=== PATIENT | male | born 2005 | race African-American/Black ===

== ENCOUNTER 2024-07-21 15:22 | Outpatient (CLI) | payer OTHER, SELFPAY ==
--- OUTSIDE RECORDS SUMMARY | 2024-07-21 17:52 | XMS_ITS | Encounter Summary ---
Author Organization [facility] Address [address] [place] [address] Care Team Providers Care Vp Strategic Partnerships Name Role Phone A, Unknown Practice Primary Care Provider [phone] Reason for Referral * Consultation (Routine) - Open Specialty Diagnoses / Procedures Referred By Pam cooley Referred To Contact Endocrinology Diagnoses Diabetes mellitus type 1, uncomplicated (HCC) Aleksandar Armando MD [address] [place] [id number] Referral ID Status Reason Start Date Expiration Date V isits Requested Visits Authorized [id number] Open Specialty Services Required 07/21/2024 07/21/2025 1 1 Reason for Visit * Reason Comments Diabetes Encounter Details Date Type Department Care Team (Latest Contact Info) Description 07/21/2024 2:45 PM CDT - 07/21/2024 3:47 PM CDT Hospital Encounter [facility] Pediatrics - Endocrinology [address] [place] [address] [place] [address] Aleksandar Armando MD [address] [place] [id number] Discharge Disposition: Home or Self Care Social History Tobacco Use Types Packs/Day Years Used Date Smoking Tobacco: Never Passive Smoke Exposure: Past Smokeless Tobacco: Never Alcohol Use Standard Drinks/Week Comments Never 0 (1 standard drink = 0.6 oz pur e alcohol) AUDIT-C Answer Date Recorded Q1: How often do you have a drink containing alc ohol? Never 12/03/2019 Average Number of Drinks Not on file 020 Frequency of Binge Drinking Not on file 08/2019 Sex and Gender Information Value Date Recorded Sex Assigned at Not on file Gender Identity Not on file Sexual Orientation Not on file documented as of this encounter Last Filed Vital Signs Vital Sign Reading Time Taken Comments Blood Pressure - - Pulse - - Temperature - - Respiratory Rate - - Oxygen Saturation - - Inhaled Oxygen Concentration - - Weight 90.5 kg (199 lb 8.3 oz) 07/21/2024 2:50 P M CDT Height 179.4 cm (5' 10.63 ) 07/21/2024 2:50 PM C DT Body Mass Index 28.12 07/21/2024 2:50 PM CDT documented in this encounter Functional Status Functional Status Response Date of Assess ment Is person deaf or have aleena us hearing difficulty? No 09/16/2020 Is person blind or have seri ous difficulty seeing? No 09/16/2020 Does person have serious dif ficulty walking/climbing stairs? No 09/16/2020 Does person have difficulty dressing/bathing? Yes-Pt states he gets fatigues 09/16/2020 Does person have difficulty doing errands alone? No 09/16/2020 Cognitive Status Response Date of Assessm ent Does person have difficulty concentrating/remembering/making decisions? No 09/16/2020 documented as of this encounter Medications at Time of Discharge Medication Sig Dispensed Refills Start Date End Date acetaminophen (TYLENOL) 500 MG tablet Take 2 tablets by mouth every 6 hours as needed Maximum allowable Acetaminophen amount = 4 Grams (4000 mg) / 24 hours. 01/07/2020 acetone,urine, (Ketostix) stripIndications:Diabe re mellitus type 1, uncomplicated (HCC) Use as needed (use when blood sugar is greater than 250 or when ill. ) 100 strip 11 07/21/2024 aspirin effervescent (Yancy [place]) 325 MG efferv tablet Take 1 (one) tablet by mouth every 4 hours as needed for Pain or Fever blood glucose (OneTouch Verio) test stripIndications:Diabe re mellitus type 1, uncomplicated (HCC) Use to test blood sugar 1-4 times daily 100 strip 11 07/21/2024 Blood Glucose Monitoring Suppl (ONETOUCH VERIO REFLECT) w/Device KIT Use 1 Each as directed 1 kit 1 09/17/2020 Continuous Glucose Sensor (Dexcom G7 Sensor) MISCIndications:Diabet es mellitus type 1, uncomplicated (HCC) Use 1 Each every 10 days 3 Each 3 07/21/2024 WD-Ppokwdubnf-Yotfplus ophen (NYQUIL COLD & FLU PO) docusate sodium (Colace) 100 MG capsule Take 1 (one) capsule by mouth 2 times daily 60 capsule 4 02/24/2022 Glucagon (Baqsimi Two Pack) 3 MG/DOSE POWDIndications:Diabet es mellitus type 1, uncomplicated (HCC) [place] 3 mg into the nose as needed (for emergency use) 1 Each 5 07/21/2024 Glucagon, rDNA, (GLUCAGON EMERGENCY) 1 MG KIT Administer 1 mg into muscle for severe low blood glucose level 2 kit 09/16/2020 ibuprofen (MOTRIN) 800 MG tablet Take 1 tablet by mouth every 8 hours as needed 01/07/2020 insulin glargine (Lantus SoloStar) penIndications:Diabete s mellitus type 1, uncomplicated (HCC) Inject 2 (two) Units subcutaneously at bedtime 15 mL 07/21/2024 insulin lispro (HumaLOG;ADMelog) 100 UNIT/ML penIndications:Diabete s mellitus type 1, uncomplicated (HCC) Inject subcutaneously with meals, snacks, and for hyperglycemia corrections as directed by provider. Max daily dose 50 units 15 mL 07/21/2024 Insulin Pen Needle (TRUEplus Pen [place]) 32G X 4 MM MISCIndications:Diabet es mellitus, new onset (HCC) Use 1 Each as directed To administer insulin 4-6 times daily 200 Each 11/27/2023 Lancets (ONETOUCH DELICA PLUS 33G EXTRA FINE LANCET) Use to test blood sugar 5 to 9 times daily 200 Each 09/17/2020 sennosides (Ex-Lax) 15 MG tablet Take 1 (one) tablet by mouth once daily 30 tablet 3 02/24/2022 documented as of this encounter Progress Notes * Aleksandar Armando MD - 07/21/2024 3:44 PM CDT Images from the original note were not included. Division of Pediatric Endocrinology [address] [place] [address] Dept Name: Rob Ellis Date: 07/21/2024 : 2005 Age: [age] year old Pediatric Endocrinology Clinic Visit Subjective / Objective Diabetes Interval History: Doing well; no diabetes related problems. BG remain mostly w/in target range. Hypoglycemia perhaps 2-4 times weekly. Skateboarding for physial activity. No ketonuria Diabetes Therapies: Long Acting Insulin: Insulin Type Units Time Injection method Comments Lantus 22 9:00 PM Other Insulin Types: Insulin type Injection method Injection given by Meals/Snacks Injection sites Glucose tgt range Comments Humalog Humalog Kwikpen 1 u per 12 g carb Units/Gram Carbs: Insulin type Units/meal or snack Gram carbs/meal or snack Comments 0-5 u meals; 0-2 u snacks (0.31 u/kg/day) Mealtime Correction & Dose Range: Insulin type Correction units mg/dL Over mg/dL Max units Doserange/meal or snack Comments 1 50 250 6 Other Medications Other Medications: Miralax Blood Glucose Monitoring Glucose Monitoring Frequency: 1 x day Glucose Target Range: 70-150 Review of Blood Glucose Past 14 Days: see below Sensor Information: Type Placement Change (days) Downloaded Review of sensor shows Comments Dexcom arm 10 wearing on right arm Hypoglycemia Episodes per Week: 2-4 Nocturnal Episodes per Month: 0-1 Recognizes Hypglycemia: when blood sugar is <80 mg/dL Symptoms: shaking, other, sweating, hunger Treatment for Episodes: juice Glucagon: has glucagon Urine Ketone Management Urine Ketone Monitoring: yes Checks When: glucose >250 Meal Plan Type of Meal Plan: carb-counting meal plan Interviewed by Flight Engineer Manager Today: Neg Last Seen by Flight Engineer Manager: Mar 14, 2022 History of Present Illness Rob Ellis is a 18 year old male that was seen today at the [facility] Pediatrics - Endocrinology clinic for a Follow Up Visit. He was accompanied today by his grandparent(s). Since his last visit he has done fairly well. Diabetes Pertinent negatives include no chest pain, no abdominal pain and no headaches. Review of Systems Constitutional: (+) weight gain and 4 lb weight gain in nine months (-) fever and (-) weight loss Eyes: (-) eye discharge ENT: (-) hearing loss and (-) sore throat Cardiovascular: (-) chest pain Respiratory: (-) cough Gastrointestinal: (-) abdominal pain Genitourinary: (-) abdominal / pelvic pain Musculoskeletal: (-) muscle weakness Integumentary / Skin: (-) rash Neurological: (-) headache Psychiatric / Behavioral: (-) depression Endocrine: (+) polydipsia Physical Exam Vitals: 07/21/24 1450 Weight: 90.5 kg (199 lb 8.3 oz) Height: 1.794 m (5' 10.63 ) Body mass index is 28.12 kg/m??. Body surface area is 2.12 meters squared. Temp: Height: 179.4 cm (5' 10.63 ) 64 %ile (Z= 0.37) based on [facility] (Boys, 2-20 Years) [id number] databased on Stature recorded on 07/21/2024. Weight: 90.5 kg (199 lb 8.3 oz) 92 %ile (Z= 1.42) based on [facility] (Boys, 2-20 Years) [id number] data using data from 07/21/2024. Constitutional: Not distressed Head: Normocephalic Ears: Normal Eyes: Conjunctivae normal Throat: Oropharynx clear and dentition normal Mouth: moist mucous membranes and normal tongue Neck: Normal range of motion No thyromegaly Cardiovascular: Regular rate and rhythm and normal rate No murmur Pulmonary: Breath sounds normal Abdominal: No abdominal tenderness, no abdominal tenderness, nondistended and no guarding Bowel sounds: normal Musculoskeletal: Moving all extremities equally Skin: Warm No rash History Past Medical History: Diagnosis Date Diabetes type 1, controlled S/P PICC central line placement 12/09/2019 right basilic S/P PICC central line placement 01/02/2020 no difficulties Past Surgical History: Procedure Laterality Date APPENDECTOMY, LAPAROSCOPIC N/A 12/04/2019 N/A; LAPAROSCOPIC APPENDECTOMY Family History Problem Relation Name Age of Onset Other Mother had two colonoscopies, possible IBD Diabetes - Type 2 Other Social History Tobacco Use Smoking status: Never Passive exposure: Past Smokeless tobacco: Never Vaping Use Vaping status: Never Used Substance Use Topics Alcohol use: Never Drug use: Never Social History Social History Narrative Parents are not together. Rob Ellis resides with his mother, and sister, age 13 yr, who are healthy. He is enrolled in the 12th grade (Nov, 2021) and plans to attend [employer] to study computer science. He works at [employer] ~ 25 hours weekly (Feb, 2022). Maternal grandmother and hersiblings have type 2 diabetes mellitus. Rob Cooley III is enrolled at [facility] ([place], [place]) History Delivery Method: Vaginal, Spontaneous Gestation Age: 40 wks Hospital Name: [facility] Location: [place], [place] Allergies Soy allergy, Iodine, and Shellfish allergy Immunizations There is no immunization history on file for this patient. Up to date Labs Recent Labs Component Name 07/21/24 1418 10/11/23 1505 04/03/23 1030 HGBA1C 6.4* 6.1* 6.5* Recent Labs Component Name 04/03/23 1117 09/15/20 2202 TSH 0.617 1.874 Recent Labs Component Name 04/03/23 1117 12/11/19 0540 12/10/19 0343 CHOL 178 - - TRIG 51 52 75 HDL 78 - - LDLCALC 90 - - Hospital Encounter on 07/21/24 HEMOGLOBIN A1C - POCT INTERFACED Result Value Ref Range Hemoglobin A1C POCT 6.4 (H) <5.7 % Estimated Average Glucose 137 mg/dL Medications Prior to Visit Current Medications acetaminophen (TYLENOL) 500 MG tablet Take 2 tablets by mouth every 6 hours as needed Maximum allowable Acetaminophen amount = 4 Grams (4000 mg) / 24 hours. acetone,urine, (Ketostix) strip Use as needed (use when blood sugar is greater than 250 or when ill. ) aspirin effervescent (Yancy [place]) 325 MG efferv tablet Take 1 (one) tablet by mouth every 4 hoursas needed for Pain or Fever blood glucose (OneTouch Verio) test strip Use to test blood sugar 1-4 times daily Blood Glucose Monitoring Suppl (ONETOUCH VERIO REFLECT) w/Device KIT Use 1 Each as directed Continuous Glucose Sensor (Dexcom G7 Sensor) [facility] Use 1 Each every 10 days HE-Nrofwywkwz-Cmyccfsvqzfuy (NYQUIL COLD & FLU PO) docusate sodium (Colace) 100 MG capsule Take 1 (one) capsule by mouth 2 times daily Glucagon (Baqsimi Two Pack) 3 MG/DOSE POWD [place] 3 mg into the nose as needed (for emergency use) Glucagon, rDNA, (GLUCAGON EMERGENCY) 1 MG KIT Administer 1 mg into muscle for severe low blood glucose level ibuprofen (MOTRIN) 800 MG tablet Take 1 tablet by mouth every 8 hours as needed insulin glargine (Lantus SoloStar) pen Inject 2 (two) Units subcutaneously at bedtime insulin lispro (HumaLOG;ADMelog) 100 UNIT/ML pen Inject subcutaneously with meals, snacks, and for hyperglycemia corrections as directed by provider. Max daily dose 50 units Insulin Pen Needle (TRUEplus Pen [place]) 32G X 4 MM MISC Use 1 Each as directed To administer insulin 4-6 times daily Lancets (ONETOUCH DELICA PLUS 33G EXTRA FINE LANCET) Use to test blood sugar 5 to 9 times daily sennosides (Ex-Lax) 15 MG tablet Take 1 (one) tablet by mouth once daily Assessment & Plan Diabetes mellitus type 1, uncomplicated Diabetes mellitus, Type 1, duration: 3 year(s), complications: none; Glycemic control: good control. No changes today; PHQ-9 (depression) screening: ND, mental health referral(s): no; Recommended: nochanges to current therapy; RD visit: next visit; RN/CDE visit: no; Counseled: transitioning to adult endocrinology, scheduling eye examination; lab results, treatment options, and follow up plan; prescriptions refilled: yes; school letter provided: N\A; Schedule eye examination: yes; rtc: 3 month(s) Orders Placed This Encounter TSH Please obtain urine microalbumin/creatinine ratio and serum lipid profile, TSH and tissue transglutaminase (IgA) antibody at local laboratory and fax results to Dr. Aleksandar Armando at [phone]. Order Specific Question: Release to patient Answer: Immediate LIPID PROFILE Please obtain urine microalbumin/creatinine ratio and serum lipid profile, TSH and tissue transglutaminase (IgA) antibody at local laboratory and fax results to Dr. Aleksandar Armando at [phone]. Order Specific Question: Release to patient Answer: Immediate TISSUE TRANSGLUTAMINASE AB IGA Please obtain urine microalbumin/creatinine ratio and serum lipid profile, TSH and tissue transglutaminase (IgA) antibody at local laboratory and fax results to Dr. Aleksandar Armando at [phone]. Order Specific Question: Release to patient Answer: Immediate MICROALB/CREAT RATIO URINE RANDOM PANEL Order Specific Question: Release to patient Answer: Immediate Referral to Endocrinology Standing Status: Future Standing Expiration Date: 07/21/2025 Referral Priority: Routine Referral Type: Consultation Referral Reason: Specialty Services Required Requested Specialty: Endocrinology Number of Visits Requested: 1 HEMOGLOBIN A1C - POCT (IP) BEAKER Standing Status: Standing Number of Occurrences: 1 Order Specific Question: Release to patient Answer: Immediate acetone,urine, (Ketostix) strip Sig: Use as needed (use when blood sugar is greater than 250 or when ill. ) Dispense: 100 strip Refill: 11 blood glucose (OneTouch Verio) test strip Sig: Use to test blood sugar 1-4 times daily Dispense: 100 strip Refill: 11 Continuous Glucose Sensor (Dexcom G7 Sensor) MISC Sig: Use 1 Each every 10 days Dispense: 3 Each Refill: 3 Glucagon (Baqsimi Two Pack) 3 MG/DOSE POWD Sig: [place] 3 mg into the nose as needed (for emergency use) Dispense: 1 Each Refill: 5 insulin glargine (Lantus SoloStar) pen Sig: Inject 2 (two) Units subcutaneously at bedtime Dispense: 15 mL Refill: 5 insulin lispro (HumaLOG;ADMelog) 100 UNIT/ML pen Sig: Inject subcutaneously with meals, snacks, and for hyperglycemia corrections as directed by provider. Max daily dose 50 units Dispense: 15 mL Refill: 5 Glucose sensor [Dexcom G6] daily: yes Lantus 22 u daily Humalog 1 u per 12 g carb (am), 1 u per 12 g carb (noon), 1 u per 12 g carb (pm), 1 u per 12 g carb(snack) Correction: 1 u per 50 mg/dL over 250 mg/dL Follow up by telephone as needed to review interval blood glucose levels and adjust insulin dose Return visit in 3 month(s). Follow Up Return in about 3 months (around 10/21/2024). GCM downloads were reviewed and interpreted (CPT 87518). Greater than 72 hours of CGM data were available. Time in target: 91 % around an average SG of 135 mg/dL (standard deviation: 34 mg/dL). Sensor usage 82% (days with CGM data: 01/11). Sensor glucose range over this period was 100 to 200 mg/dL. Data observations included: fasting glucose levels 100-200 mg/dL; higher glucose levels, up to 200 mg/dL occasionally after breakfast. Based on CGM interpretation the following recommendation/s were made: no changes. I spent 40 minutes regarding this patient today reviewing the medical record/downloaded data/continuous glucose sensor readings prior to the visit, taking a history, examining the child, discussing the assessment and recommendations with the family, prescribing medications, reviewing or ordering labs/imaging, and documenting this note. Aleksandar Armando MD [phone] CC: [facility] [address] [place] [address] / [facility] [phone] Fax: None * Aleksandar Armando MD - 07/21/2024 2:49 PM CDT History of Present Illness Rob Ellis is a 18 year old male that was seen today at the [facility] Pediatrics - Endocrinology clinic for a Follow Up Visit. He was accompanied today by his grandparent(s). Since his last visit he has done fairly well. Diabetes Pertinent negatives include no chest pain, no abdominal pain and no headaches. Review of Systems Constitutional: (+) weight gain and 4 lb weight gain in nine months (-) fever and (-) weight loss Eyes: (-) eye discharge ENT: (-) hearing loss and (-) sore throat Cardiovascular: (-) chest pain Respiratory: (-) cough Gastrointestinal: (-) abdominal pain Genitourinary: (-) abdominal / pelvic pain Musculoskeletal: (-) muscle weakness Integumentary / Skin: (-) rash Neurological: (-) headache Psychiatric / Behavioral: (-) depression Endocrine: (+) polydipsia Physical Exam Vitals: 07/21/24 1450 Weight: 90.5 kg (199 lb 8.3 oz) Height: 1.794 m (5' 10.63 ) Body mass index is 28.12 kg/m??. Body surface area is 2.12 meters squared. Temp: Height: 179.4 cm (5' 10.63 ) 64 %ile (Z= 0.37) based on [facility] (Boys, 2-20 Years) [id number] databased on Stature recorded on 07/21/2024. Weight: 90.5 kg (199 lb 8.3 oz) 92 %ile (Z= 1.42) based on [facility] (Boys, 2-20 Years) [id number]-cej-[id number] data using data from 07/21/2024. Constitutional: Not distressed Head: Normocephalic Ears: Normal Eyes: Conjunctivae normal Throat: Oropharynx clear and dentition normal Mouth: moist mucous membranes and normal tongue Neck: Normal range of motion No thyromegaly Cardiovascular: Regular rate and rhythm and normal rate No murmur Pulmonary: Breath sounds normal Abdominal: No abdominal tenderness, no abdominal tenderness, nondistended and no guarding Bowel sounds: normal Musculoskeletal: Moving all extremities equally Skin: Warm No rash documented in this encounter Plan of Treatment Upcoming Encounters Date Type Department Care Team (Late st Contact Info) Description 11/24/2024 2:00 PM CDT Appointment [facility] Pediatrics - Endocrinology [address] [place] [address] [place] [address] Aleksandar Armando MD [address] [place] [id number] Scheduled Orders Name Type Priority Associated Diagnoses Orde r Schedule TSH Lab Routine Diabetes mellitus type 1, uncomplicated Ordered: 07/21/2024 LIPID PROFILE Lab Routine Diabetes mellitus type 1, uncomplicated Ordered: 07/21/2024 TISSUE TRANSGLUTAMINASE AB IGA Lab Routine Diabetes mellitus type 1, uncomplicated Ordered: 07/21/2024 MICROALB/CREAT RATIO URINE RANDOM PANEL Lab Routine Diabetes mellitus type 1, uncomplicated Ordered: 07/21/2024 Scheduled Referrals Name Type Priority Associated Diagnoses Orde r Schedule Referral to Endocrinology Outpatient Referral Routine Diabetes mellitus type 1, uncomplicated Expected: 07/21/2024, Expires: 07/21/2025 documented as of this encounter Procedures Procedure Name Priority Date/Time Associated Diagnosis Comments HEMOGLOBIN A1C - POCT INTERFACED Routine 07/21/2024 2:18 PM CDT documented in this encounter Results * (ABNORMAL) HEMOGLOBIN A1C - POCT INTERFACED (07/21/2024 2:18 PM CDT) Hemoglobin A1C POCT 6.4(H) <5.7 % 07/21/2024 2:55 PM CDT [facility] [employer] [facility] Estimated Average Glucose 137 mg/dL 07/21/2024 2:55 PM CDT [facility] [employer] [facility] Blood BLOOD SPECIMEN / Unknown 07/21/2024 2:18 PM CDT 07/21/2024 2:55 PM CDT Narrative [facility] [employer] [facility] - 07/21/2024 2:55 PM CDT HbA1c Interpretation: Normal: < 5.7% Pre-diabetes: 5.7-6.4% Diabetes: Equal to or greater than 6.5% This test should only be used to monitor, not diagnose diabetes. Test results diagnostic of diabetes should be repeated by another method with a different assay principle for confirmation. Treatment target values recommended by ADA and other clinical organizations should be used to evaluate metabolic control in patients. Patients with a hemoglobin of <7 or >24 should not be tested using this method. Patients known to have these conditions should be assayed by a test employing a different assay principle. Glycated hemoglobin F is not measured by the DCA HbA1c assay. At very high levels of hemoglobin F (> 10%), HbA1c is lower than expected. Patients with HbS or HbE should not be tested using this device. HbS or HbE cause a higher result than expected. Conditions such as hemolytic anemia, polycythemia, homozygous and HbC, can result in decreased life span of the red blood cells, which causes HbA1c results to be lower than expected. The Siemens DCA assay for the measurement of HbA1c is a National Glycohemoglobin Standardization Program (NGSP) certified method. Aleksandar Armando MD LAB - POINT OF CARE ORDERABLES [facility] [employer] [facility] [address] [place] [address], [facility] documented in this encounter Visit Diagnoses Diagnosis Diabetes mellitus type 1, uncomplicated Type I (juvenile type) diabetes mellitus without mention of complication, not stated as uncontrolled Diabetes mellitus, new onset (HCC) Type II or unspecified type diabetes mellitus without mention of complication, not stated as uncontrolled * Assessment & Plan Note - Aleksandar Armando MD - 07/21/2024 3:39 PM CDTAssociated Problem(s): Diabetes mellitus type 1, uncomplicated Diabetes mellitus, Type 1, duration: 3 year(s), complications: none; Glycemic control: good control. No changes today; PHQ-9 (depression) screening: ND, mental health referral(s): no; Recommended: nochanges to current therapy; RD visit: next visit; RN/CDE visit: no; Counseled: transitioning to adult endocrinology, scheduling eye examination; lab results, treatment options, and follow up plan; prescriptions refilled: yes; school letter provided: N\A; Schedule eye examination: yes; rtc: 3 month(s) Orders Placed This Encounter TSH Please obtain urine microalbumin/creatinine ratio and serum lipid profile, TSH and tissue transglutaminase (IgA) antibody at local laboratory and fax results to Dr. Aleksandar Armando at [phone]. Order Specific Question: Release to patient Answer: Immediate LIPID PROFILE Please obtain urine microalbumin/creatinine ratio and serum lipid profile, TSH and tissue transglutaminase (IgA) antibody at local laboratory and fax results to Dr. Aleksandar Armando at [phone]. Order Specific Question: Release to patient Answer: Immediate TISSUE TRANSGLUTAMINASE AB IGA Please obtain urine microalbumin/creatinine ratio and serum lipid profile, TSH and tissue transglutaminase (IgA) antibody at local laboratory and fax results to Dr. Aleksandar Armando at [phone]. Order Specific Question: Release to patient Answer: Immediate MICROALB/CREAT RATIO URINE RANDOM PANEL Order Specific Question: Release to patient Answer: Immediate Referral to Endocrinology Standing Status: Future Standing Expiration Date: 07/21/2025 Referral Priority: Routine Referral Type: Consultation Referral Reason: Specialty Services Required Requested Specialty: Endocrinology Number of Visits Requested: 1 HEMOGLOBIN A1C - POCT (IP) BECASANDRA Standing Status: Standing Number of Occurrences: 1 Order Specific Question: Release to patient Answer: Immediate acetone,urine, (Ketostix) strip Sig: Use as needed (use when blood sugar is greater than 250 or when ill. ) Dispense: 100 strip Refill: 11 blood glucose (OneTouch Verio) test strip Sig: Use to test blood sugar 1-4 times daily Dispense: 100 strip Refill: 11 Continuous Glucose Sensor (Dexcom G7 Sensor) MISC Sig: Use 1 Each every 10 days Dispense: 3 Each Refill: 3 Glucagon (Baqsimi Two Pack) 3 MG/DOSE POWD Sig: [place] 3 mg into the nose as needed (for emergency use) Dispense: 1 Each Refill: 5 insulin glargine (Lantus SoloStar) pen Sig: Inject 2 (two) Units subcutaneously at bedtime Dispense: 15 mL Refill: 5 insulin lispro (HumaLOG;ADMelog) 100 UNIT/ML pen Sig: Inject subcutaneously with meals, snacks, and for hyperglycemia corrections as directed by provider. Max daily dose 50 units Dispense: 15 mL Refill: 5 Glucose sensor [Dexcom G6] daily: yes Lantus 22 u daily Humalog 1 u per 12 g carb (am), 1 u per 12 g carb (noon), 1 u per 12 g carb (pm), 1 u per 12 g carb(snack) Correction: 1 u per 50 mg/dL over 250 mg/dL Follow up by telephone as needed to review interval blood glucose levels and adjust insulin dose Return visit in 3 month(s). documented in this encounter Care Teams [facility] [employer] Relationship Specialty Start Date End Date A, Unknown Practice [address] [place] [id number] PCP - General 10/08/23 documented as of this encounter
--- OUTSIDE RECORDS SUMMARY | 2024-07-21 17:52 | XMS_ITS | Clinical Summary ---
Author Organization [facility] [employer] Address [address] [place] [address] Care Team Providers Care Bee Worker Name Role Phone A, Unknown Practice Primary Care Provider [phone] Source Comments [facility] [employer],non-owned Affiliates and Associated Physician Practices is amultiple site organization consisting of ambulatory clinics and hospital sitesin [place], [place], [place] and [place]. This disclosure is being madepursuant to the Care Everywhere program and may not contain all information available regarding this patient. Last updated 18.[facility] [employer] Allergies Active Allergy Reactions Criticality Noted Date Comments Iodine Swelling Medium 02/21/2021 Shellfish Allergy Urticaria Medium 12/03/2019 Seafood per mom Soy Allergy Anaphylaxis High 09/15/2020 Pt lips burn Medications * Be aware that medications may not be up to date on this document. Alwaysverify current medications with the patient. Medication Sig Dispensed Refills Start Date End Date Status acetaminophen (TYLENOL) 500 MG tablet Take 2 tablets by mouth every 6 hours as needed Maximum allowable Acetaminophen amount = 4 Grams (4000 mg) / 24 hours. 0 Active ibuprofen (MOTRIN) 800 MG tablet Take 1 tablet by mouth every 8 hours as needed 0 Active Glucagon, rDNA, (GLUCAGON EMERGENCY) 1 MG KIT Administer 1 mg into muscle for severe low blood glucose level 2 kit 1 Active Lancets (ONETOUCH DELICA PLUS 33G EXTRA FINE LANCET) Use to test blood sugar 5 to 9 times daily 200 Each 11 1 Active Blood Glucose Monitoring Suppl (ONETOUCH VERIO REFLECT) w/Device KIT Use 1 Each as directed 1 kit 1 1 Active aspirin effervescent (Yancy Carter) 325 MG efferv tablet Take 1 (one) tablet by mouth every 4 hours as needed for Pain or Fever Active VO-Esvogvyjwx-Yreh aminophen (NYQUIL COLD & FLU PO) Active docusate sodium (Colace) 100 MG capsule Take 1 (one) capsule by mouth 2 times daily 60 capsule 4 2 Active sennosides (Ex-Lax) 15 MG tablet Take 1 (one) tablet by mouth once daily 30 tablet 3 2 Active Insulin Pen Needle (TRUEplus Pen [place]) 32G X 4 MM MISCIndications:Di abetes mellitus, new onset (HCC) Use 1 Each as directed To administer insulin 4-6 times daily 200 Each 11 4 Active acetone,urine, (Ketostix) stripIndications:D iabetes mellitus type 1, uncomplicated (HCC) Use as needed (use when blood sugar is greater than 250 or when ill. ) 100 strip 11 5 Active blood glucose (Pascal MetricsTouch Verio) test stripIndications:D iabetes mellitus type 1, uncomplicated (HCC) Use to test blood sugar 1-4 times daily 100 strip 11 5 Active Continuous Glucose Sensor (Dexcom G7 Sensor) MISCIndications:Di abetes mellitus type 1, uncomplicated (HCC) Use 1 Each every 10 days 3 Each 3 5 Active Glucagon (Baqsimi Two Pack) 3 MG/DOSE POWDIndications:Di abetes mellitus type 1, uncomplicated (HCC) [place] 3 mg into the nose as needed (for emergency use) 1 Each 5 5 Active insulin glargine (Lantus SoloStar) penIndications:Mariam betes mellitus type 1, uncomplicated (HCC) Inject 2 (two) Units subcutaneously at bedtime 15 mL 5 5 Active insulin lispro (HumaLOG;ADMelog) 100 UNIT/ML penIndications:Mariam betes mellitus type 1, uncomplicated (HCC) Inject subcutaneously with meals, snacks, and for hyperglycemia corrections as directed by provider. Max daily dose 50 units 15 mL 5 Active blood glucose (OneTouch Verio) test stripIndications:D iabetes mellitus, new onset (HCC) Use to test blood sugar 1-4 times daily 100 strip 11 3 07/22/19 25 Discontinu ed(Reorder ) Glucagon (Baqsimi Two Pack) 3 MG/DOSE POWDIndications:Di abetes mellitus type 1, uncomplicated (HCC) [place] 3 mg into the nose as needed (for emergency use) 1 Each 4 07/22/19 25 Discontinu ed(Reorder ) acetone,urine, (Ketostix) strip Use as needed (use when blood sugar is greater than 250 or when ill. ) 100 strip 4 07/22/19 25 Discontinu ed(Reorder ) insulin glargine (Lantus SoloStar) penIndications:Mariam betes mellitus, new onset (HCC) Inject 21 (twenty one) Units subcutaneously at bedtime 15 mL 5 07/22/19 25 Discontinu ed(Reorder ) Continuous Glucose Sensor (Dexcom G7 Sensor) MISCIndications:Di abetes mellitus type 1, uncomplicated (HCC) Use 1 Each every 10 days 3 Each 5 07/22/19 25 Discontinu ed(Reorder ) insulin lispro (HumaLOG;ADMelog) 100 UNIT/ML penIndications:Mariam betes mellitus, new onset (HCC) Inject subcutaneously with meals, snacks, and for hyperglycemia corrections as directed by provider. Max daily dose 50 units 15 mL 3 5 07/22/19 25 Discontinu ed(Reorder ) Active Problems Problem Noted Date Diagnosed Date Diabetes mellitus type 1, uncomplicated 09/17/19 21 Overview (03/01/2021): Dx (09/15/2020): Diabetes mellitus, type I vs ll vs JAYME (maturity onset diabetes of youth vs ?); hemoglobin A1c 13.1 %; C-peptide 0.6 ng/mL (1.1-4.4), serum anti-ANDREW < 5 U/mL (< 5.0), anti-insulin [IA-2 ab] 29 U/mL (0.0-0.8), anti-islet cell IgG antibodies < 1:4 (< 1:4); Zinc Transporter 8 antibody > 500 U/mL (< 15). Assessment & Plan (07/21/2024 3:44 PM CDT): Diabetes mellitus, Type 1, duration: 3 year(s), complications: none; Glycemic control: good control. No changes today; PHQ-9 (depression) screening: ND, mental health referral(s): no; Recommended: no changes to current therapy; RD visit: next visit; [...] fax results to Dr. Aleksandar Armando at [phone]. Order Specific Question: Release to patient Answer: Immediate LIPID PROFILE Please obtain urine microalbumin/creatinine ratio and serum lipid profile, TSH and tissue transglutaminase (IgA) antibody at local laboratory and fax results to Dr. Aleksandar Armando at [phone]. Order Specific Question: Release to patient Answer: Immediate TISSUE TRANSGLUTAMINASE AB IGA Please obtain urine microalbumin/creatinine ratio and serum lipid profile, TSH and tissue transglutaminase (IgA) antibody at local laboratory and fax results to Dr. Aleksandar Armando at [phone]. Order Specific Question: Release to patient Answer: Immediate MICROALB/CREAT RATIO URINE RANDOM PANEL Order Specific Question: Release to patient Answer: Immediate Referral to Endocrinology Standing Status: Future Standing Expiration Date: 07/21/2025 Referral Priority: Routine Referral Type: Consultation Referral Reason: Specialty Services Required Requested Specialty: Endocrinology Number of Visits Requested: 1 HEMOGLOBIN A1C - POCT (IP) MARIELOS Standing Status: Standing Number of Occurrences: 1 [...] 11 Continuous Glucose Sensor (Dexcom G7 Sensor) [facility] Sig: Use 1 Each every 10 days Dispense: 3 Each Refill: 3 Glucagon (Baqsimi Two Pack) 3 MG/DOSE POWD Sig: [place] 3 mg into the nose as needed [...] carb (pm), 1 u per 12 g carb (snack) Correction: 1 u per 50 mg/dL over 250 mg/dL Follow up by telephone as needed to review interval blood glucose levels and adjust insulin dose Return visit in 3 month(s). Assessment & Plan (04/03/2023 5:07 PM REVIT DRAFTER): Diabetes mellitus, Type 1, duration: 2 year(s), complications: none; Glycemic control: good control; + overnight hypoglycemia on current doses; PHQ-9 (depression) screenin, mental health referral(s): no; Recommended: switch to G7 sensor, decrease Lantus to 22 u daily ; RD visit: no; RN/CDE visit: yes, transition to adult endo; Counseled: insulin dose changes; lab results, treatment options, follow up plan and return instructions; prescriptions refilled: yes; school letter provided: N\A; Schedule eye examination: yes; rtc: 3 month(s) Orders Placed This Encounter LIPID PROFILE Standing Status: Future Standing Expiration Date: 03/25/2024 Order Specific Question: Release to patient Answer: Immediate TSH REFLEX FREE T4 Standing Status: Future Standing Expiration Date: 03/25/2024 Order Specific Question: Release to patient Answer: Immediate LIPID PROFILE Standing Status: Future Number of Occurrences: 1 Standing Expiration Date: 03/28/2024 Order Specific Question: Release to patient Answer: Immediate TSH REFLEX FREE T4 Standing Status: Future Number of Occurrences: 1 Standing Expiration Date: 03/28/2024 Order Specific Question: Release to patient Answer: Immediate MICROALB/CREAT RATIO URINE RANDOM PANEL Standing Status: Future Number of Occurrences: 1 Standing Expiration Date: 03/28/2024 Order Specific Question: Release to patient Answer: Immediate MICROALB/CREAT RATIO URINE RANDOM PANEL Standing Status: Standing Number of Occurrences: 1 Order Specific Question: Release to patient Answer: Immediate HEMOGLOBIN A1C - POCT (IP) BEAKER Standing Status: Future Number of Occurrences: 1 Standing Expiration Date: 03/25/2024 Order Specific Question: Release to patient Answer: Immediate HEMOGLOBIN A1C - POCT (IP) BEAKER Standing Status: Standing Number of Occurrences: 1 Order Specific Question: Release to patient Answer: Immediate blood glucose (OneTouch Verio) test strip Sig: Use to test blood sugar 5 to 7 times daily Dispense: 200 strip Refill: 11 insulin glargine (Lantus SoloStar) pen Sig: Inject 22 (twenty two) Units subcutaneously at bedtime Dispense: 15 mL Refill: 5 insulin lispro (HumaLOG;ADMelog) 100 UNIT/ML pen Sig: INJECT 1 UNIT UNDER THE SKIN FOR EVERY 12 GRAMS OF CARBOHYDRATES WITH MEALS AND SNACKS OR DIRECTED. MAXIMUM DAILY DOSE IS 50 UNITS. Dispense: 15 mL Refill: 5 insulin pen needle (Novofine) 32G X 6 MM MISC Sig: To administer insulin 4-6 times daily Dispense: 200 Each Refill: 3 Insulin Pen Needle (TRUEplus Pen [place]) 32G X 4 MM MISC Sig: Use 1 Each as directed To administer insulin 4-6 times daily Dispense: 200 Each Refill: 11 Glucose sensor (Dexcom G6/G7 or Darcie) daily: yes Lantus 22 u daily Humalog 1 u per 15 g carb (am), 1 u per 15 g carb (noon), 1 u per 15 g carb (pm), 1 u per 15 g carb (snack) Correction: 1 u per 50 mg/dL over 150 mg/dL Follow up by telephone as needed to review interval blood glucose levels and adjust insulin dose Return visit in 3 months, if unable to schedule appointment with adult endo Assessment & Plan (08/08/2022 9:39 AM CDT): Diabetes mellitus, Type 1, duration: 1 year(s), complications: none; Glycemic control: good control; PHQ-9 (depression) screenin, mental health referral(s): no; Recommended: decrease Lantus dose to 24 u daily; RD visit: no; RN/CDE visit: yes (transition visit #1), Counseled: transitioning care to adult maintenance representative after high school graduation, diagnosis, potential genetic testing (rule out JAYME, due to Rob Cooley III's consistent and near normal home glucose levels on his current insulin regimen. I would have anticipated more variability of his ambient glucose levels with type 1 diabetes mellitus), potential changes in therapy if he has JAYME (sulfonyrurea), today's insulin dose adjustments; lab results, treatment options, follow up plan and return instructions; prescriptions refilled: yes; school letter provided: no; Schedule eye examination: yes; rtc: 3 month(s) Orders Placed This Encounter MICROALB/CREAT RATIO URINE RANDOM PANEL Standing Status: Standing Number of Occurrences: 1 Order Specific Question: Release to patient Answer: Immediate HEMOGLOBIN A1C - POCT (IP) MARIELOS Standing Status: Standing Number of Occurrences: 1 Order Specific Question: Release to patient Answer: Immediate Continuous Blood Gluc Sensor (Dexcom G6 Sensor) MISC Sig: Use 1 Each every 10 days Dispense: 3 Each Refill: 11 Continuous Blood Gluc Transmit (Dexcom G6 Transmitter) MISC Sig: Use 1 Each Every 90 days Dispense: 1 Each Refill: 3 acetone,urine, (Ketostix) strip Sig: Use as needed (use when blood sugar is greater than 250 or when ill. ) Dispense: 100 strip Refill: 11 Glucagon (Baqsimi Two Pack) 3 MG/DOSE POWD Sig: [place] 3 mg into the nose as needed (for emergency use) Dispense: 1 Each Refill: 5 insulin glargine (Lantus/Semglee) 100 units/ml injection Sig: Inject 24 units daily at bedtime or as directed. Dispense: 10 mL Refill: 5 insulin lispro (HumaLOG;ADMelog) 100 UNIT/ML pen Sig: INJECT 1 UNIT SUBCUTANEOUS FOR EVERY 12 GRAMS OF CARBOHYDRATES WITH MEALS AND SNACKS OR DIRECTED. MAX DAILY DOSE OF 50 UNITS Dispense: 15 mL Refill: 3 Glucose sensor (Dexcom G6 or Darcie) daily: yes Lantus 24 u daily Humalog 1 u per 12 g carb (am), 1 u per 12 g carb (noon), 1 u per 12 g carb (pm), 1 u per 12 g carb (snack) Correction: 1 u per 50 mg/dL over 150 mg/dL Follow up by telephone as needed to review interval blood glucose levels and adjust insulin dose Return visit in 3 months. Assessment & Plan (03/14/2022 2:14 PM REVIT DRAFTER): Diabetes mellitus, Type 1, duration: 18 month(s), complications: none; Glycemic control: good control; PHQ-9 (depression) screenin, mental health referral(s): no; Recommended: decrease Lantus and Humalog doses, as noted below. May need further decreases if hypoglycemia persists; RD visit: no; Counseled: diagnosis, lab results, treatment options and follow up plan; prescriptions refilled: yes; school letter provided: no; Schedule eye examination: no; rtc: 3 month(s) Orders Placed This Encounter MICROALB/CREAT RATIO URINE RANDOM PANEL Standing Status: Future Number of Occurrences: 1 Standing Expiration Date: 02/28/2023 Order Specific Question: Release to patient Answer: Immediate MICROALB/CREAT RATIO URINE RANDOM PANEL Standing Status: Standing Number of Occurrences: 1 Order Specific Question: Release to patient Answer: Immediate HEMOGLOBIN A1C - POCT (IP) MARIELOS Standing Status: Future Number of Occurrences: 1 Standing Expiration Date: 02/28/2023 Order Specific Question: Release to patient Answer: Immediate HEMOGLOBIN A1C - POCT (IP) BEAKER Standing Status: Standing Number of Occurrences: 1 Order Specific Question: Release to patient Answer: Immediate Glucose sensor (Dexcom G6 or Darcie) daily: yes Lantus 26 u daily Humalog 1 u per 15 g carb (am), 1 u per 15 g carb (noon), 1 u per 15 g carb (pm), 1 u per 15 g carb (snack) Correction: 1 u per 50 mg/dL over 150 mg/dL Follow up by telephone as needed to review interval blood glucose levels and adjust insulin dose Return visit in 3 months. Assessment & Plan (03/01/2021 5:37 PM CDT): Diabetes mellitus, Type 1, uncomplicated; duration: 6 months, excellent glycemic control. PHQ-9 (depression) screening: N/A; Advised: decrease Lantus and Humalog doses as below; RD visit: no; rtc: 3 month(s) Lantus 25 u daily Humalog 1 u per 12 g carb (am), 1 u per 12 g carb (noon), 1 u per 12 g carb (pm), 1 u per 12g carb (snack) Correction: 1 u per 50 mg/dL over 150 mg/dL Follow up by telephone as needed to review interval blood glucose levels and adjust insulin dose Return visit in three months. Assessment & Plan (10/29/2020 5:30 PM CDT): New onset, diabetes mellitus, ~ 6 weeks duration, ? Type l, excellent glycemic control. Advise: decrease Lantus dose. Obtain serum zinc transporter 8 antibodies Lantus 27 u daily Humalog 1 u per 9 g carb with meals/snacks (correction: 1 u per 50 mg/dL over 150 mg/dL) Carb counting meal planning Record bg values in logbook daily Follow up by telephone in 1-2 weeks to review interval blood glucose levels and adjust insulin dose Return visit in two months. Assessment & Plan (10/01/2020 11:17 AM CDT): New onset diabetes mellitus, cause uncertain. Well managed. Lantus 32 u daily Humalog 1 u per 9 g carb with meals/snacks; correction: 1 u per 50 mg/dL over 150 mg/dL (max: 6 u) Measure BG four times daily and record in logbook RD visit today Follow up by telephone (mother's telephone: [phone]) after all diabetes mellitus antibodies complete. Consider starting metformin daily if all diabetes mellitus antibodies negative Return visit in one month Assessment & Plan (09/17/2020 3:12 PM CDT): Assessment: 14 y/o m no signifcant pmhx presenting w/ abdominal pain and wt loss for 1 month duration. Lab w/u consistent with DM, likely type I but possibly II. Pt was started on 2 bag system and insulin drip, and was transitioned to home insulin regimen overnight. Pt will stay admitted afterwards for diabetes education and counseling. Plan: FEN/GI - Carb counting diet - stopped 1/2NS w/ 40 KCl at 115 ml/hr today - Lantus 40 units qhs (increased from 35 units) - CCF: 1u:10g carbs - SSI: 1u for every 50 over 150 - 20 KCl BID for 7 days - will continue after discharge - Glucose checks TID, qhs, and 02:00 Endo - ANDREW antibody, IA-2 antibody, islet cell antibody, c-peptide pending - A1c: 13.1% -consult paraeducator and nutritional services CVS/Resp - NIMESH, no concerns - vitals q2hr - CRM - continuous pulse ox Assessment & Plan (09/16/2020 4:59 PM CDT): Assessment: 14 y/o m no signifcant pmhx presenting w/ abdominal pain and wt loss for 1 month duration. Lab w/u consistent with DM, likely type I but possibly II. Pt was started on 2 bag system and insulin drip, and will eventually be transitioned to a home insulin regiment once stabilized. Pt will stay admitted afterwards for diabetes education and counseling. Plan: FEN/GI -200mls/hr (2.5L/m^2/24hr) combination 1/2NS and D10 1/2NS w/ 30mEq/L k phos and 30mEq/L k acetate - Fluids increased to ~2.7L/m2/day, and on full D10 0.5NS - Will transition patient once gap closes, and will start IV fluids -insulin drip 0.1units/kg/hr - NPO -q4hr CMP -ketones qvoid -q1hr glucose checks Endo - ANDREW antibody, IA-2 antibody, islet cell antibody, c-peptide pending - A1c: 13.1% -consult paraeducator and nutritional services CVS/Resp - NIMESH, no concerns - vitals q2hr - CRM - continuous pulse ox Neuro -q1hr neuro checks Assessment & Plan (09/16/2020 2:07 AM CDT): Assessment: 14 y/o m no signifcant pmhx presenting w/ abdominal pain and wt loss for 1 month duration. Lab w/u consistent with DM, likely type I but possibly II. Pt was started on 2 bag system and insulin drip, and will eventually be transitioned to a home insulin regiment once stabilized. Pt will stay admitted afterwards for diabetes education and counseling. Plan: -200mls/hr (2.5L/m^2/24hr) combination 1/2NS and D10 1/2NS w/ 30mEq/L k phos and 30mEq/L k acetate -insulin drip 0.1units/kg/hr -ordered ANDREW antibody, IA-2 antibody, islet cell antibody, c-peptide, A1c -q4hr CMP -ketones qvoid -q1hr glucose checks -vitals q2hr -q1hr neuro checks -NPO -consult paraeducator and nutritional services Abdominal pain, right lower quadrant 12/31/2019 RLQ abdominal pain 12/03/2019 Acute appendicitis with loca lized peritonitis, without perforation, abscess, or gangrene 12/03/2019 Resolved Problems Problem Noted Date Diagnosed Date Resolved Date Constipation 02/24/2022 03/24/2022 Encounters Date Type Department Care Team Description 07/21/2024 2:45 PM CDT - 07/21/2024 3:47 PM CDT Hospital Encounter [facility] [facility] [address] Aleksandar Armando MD Discharge Disposition: Home or Self Care 07/21/2024 Travel 05/05/2024 Refill [facility] - Endocrinology [address] [place] [id number] Aleksandar Armando MD MEDICATION REFILL 05/02/2024 Refill [facility] - Diabetes Mgmt [address] [place] [address] Aleksandar Armando MD MEDICATION REFILL 05/02/2024 Travel from Last 3 Months Family History Medical History Relation Name Comments Other Mother had two colonos copies, possible IBD Diabetes - Type 2 Other Relation Name Status Comments Mother Other Other Mother's matern al aunt Social History Tobacco Use Types Packs/Day Years Used Date Smoking Tobacco: Never Passive Smoke Exposure: Past Smokeless Tobacco: Never Tobacco Cessation:Counseling Given: Not Answered Alcohol Use Standard Drinks/Week Comments Never 0 [...] on file Sexual Orientation Not on file Last Filed Vital Signs Vital Sign Reading Time Taken Comments Blood Pressure 122/76 10/11/2023 3:01 PM CDT Pulse 72 10/01/2020 10:50 AM CDT Temperature 36.6 C (97.8 F) 09/18/2020 7:47 AM CDT Respiratory Rate 12 10/01/2020 10:50 AM CDT Oxygen Saturation 96% 09/18/2020 7:47 AM CDT Inhaled Oxygen Concentration 100% 12/04/2019 3 :15 PM CDT Weight 90.5 kg (199 lb 8.3 oz) 07/21/2024 2:50 P M CDT Height 179.4 cm (5' 10.63 ) 07/21/2024 2:50 PM C DT Body Mass Index 28.12 07/21/2024 2:50 PM CDT Plan of Treatment Upcoming Encounters Date Type Department Care Team (Late st Contact Info) Description 11/24/2024 2:00 PM CDT Appointment [facility] - Endocr[facility] [facility] [place] [address] Aleksandar Armando MD [address] [place] [address] Health Maintenance Due Date Last Done Comments HIV SCREENING 12/29/2019 HPV VACCINE (1 - Male 3-dose series) 12/29/2019 DIABETES RETINOPATHY SCREENING 09/16/2020 MENINGOCOCCAL (Group B) VACCINE SHARED DECISION-MAKING (1 of 2 - Standard) 2020 HEPATITIS C SCREENING 12/24/2022 DIABETES-FOOT EXAM WITH MONOFILAMENT 2022 DIABETES-SERUM CREATININE 12/28/20222020, 10/29/2020, 09/24/2020, Additional history exists DTAP/TDAP/TD VACCINES (1 - Tdap) 12/29/2023 HEPATITIS B VACCINE (1 of 3 - 19+ 3-dose series) 12/29/2023 PNEUMOCOCCAL VACCINE (1 of 2 - PCV) 12/29/2023 COVID-19 VACCINE (1 - season) 2023 INFLUENZA VACCINE (#1) 2023 DEPRESSION SCREENING 04/30/2024 DIABETES - URINE PROTEIN SCREENING 04/30/2024 04/03/2023, 08/08/2022 DIABETES-HGB A1C 01/21/2025 07/21/2024, , 04/03/2023, Additional history exists ZOSTER VACCINE (1 of 2) 2054 HIB VACCINE Aged Out No longer eligi ble based on patient's age to complete this topic MENINGOCOCCAL GROUPS A/C/Y/W VACCINE Aged Out No longer eligible based on patient's age to complete this topic Procedures Procedure Name Priority Date/Time Associated Diagnosis Comments HEMOGLOBIN A1C - POCT INTERFACED Routine 07/21/2024 2:18 PM CDT MICROALB/CREAT RATIO URINE RANDOM PANEL Routine 04/03/2023 11:13 AM REVIT DRAFTER Diabetes mellitus, new onset BASIC METABOLIC PANEL (CALCIUM TOTAL) Routine 10/29/2020 12:13 PM CDT Hypokalemia from Last 3 Months or Most Recently Relevant to Health Maintenance Results * (ABNORMAL) HEMOGLOBIN A1C - POCT INTERFACED (07/21/2024 2:18 PM CDT) Hemoglobin A1C POCT 6.4(H) <5.7 % 07/21/2024 2:55 PM CDT [facility] Estimated Average Glucose 137 mg/dL 07/21/2024 2:55 PM CDT [facility] Blood BLOOD SPECIMEN / Unknown 07/21/2024 2:18 PM CDT 07/21/2024 2:55 PM CDT Narrative [facility] - 07/21/2024 2:55 PM CDT HbA1c [...] MD LAB - POINT OF CARE ORDERABLES [facility] [address] * MICROALB/CREAT RATIO URINE RANDOM PANEL (04/03/2023 11:13 AM [facility]) Albumin Random Urine 7.1 Not Established ug/mL 04/03/2023 11:49 AM [facility] Creatinine Urine 216.46 Not Established mg/dL 04/03/2023 11:49 AM [facility] Urine Albumin/Creati nine Ratio 3 <30 mg/g 04/03/2023 11:49 AM [facility] Urine URINE SPECIMEN OBTAINED BY CLEAN CATCH PROCEDURE / Unknown Collection / Unknown 04/03/2023 11:13 AM REVIT DRAFTER 04/03/2023 11:23 AM REVIT DRAFTER Aleksandar Armando MD LAB - URINE CHEMISTR Y ORDERABLES [facility] [address] [place] [address], [place] [phone] * (ABNORMAL) BASIC METABOLIC PANEL (CALCIUM TOTAL) (10/29/2020 12:13 PM CDT) BUN 7 5 - 19 mg/dL 10/29/2020 1:09 PM [facility] Creatinine 0.89 0.47 - 0.91 mg/dL 10/29/2020 1:09 PM [facility] Sodium 146(H) 136 - 145 mmol/L 10/29/2020 1:09 PM [facility] Potassium 4.7 3.5 - 5.1 mmol/L 10/29/2020 1:09 PM [facility] Chloride 109(H) 98 - 107 mmol/L 10/29/2020 1:09 PM [facility] CO2 20 20 - 28 mmol/L 10/29/2020 1:09 PM [facility] Glucose 98 70 - 115 mg/dL 10/29/2020 1:09 PM [facility] Calcium 9.4 8.4 - 10.2 mg/dL 10/29/2020 1:09 PM [facility] Anion Gap 22(H) 8 - 18 10/29/2020 1:09 PM [facility] BUN/Creatinine Ratio 8 7 - 23 10/29/2020 1:09 PM [facility] Osmolality Calculated 300 270 - 300 mOsm/kg 10/29/2020 1:09 PM [facility] Blood BLOOD SPECIMEN / Unknown Lab Venipuncture / Unknown 10/29/2020 12:13 PM CDT 10/29/2020 12:38 PM CDT Jameel Tineo MD LAB - CHEMISTRY [facility] [address] [place] [id number], [place] [phone] from Last 3 Months or Most Recently Relevant to Health Maintenance Advance Directives * Full Code (Latest Code Status on File) Date Activated Date Inactivated Comments 09/18/2020 9:19 AM 09/18/2020 7:29 PM * Full Code Date Activated Date Inactivated Comments 12/31/2019 4:59 PM 01/07/2020 4:03 PM * Full Code Date Activated Date Inactivated Comments 12/03/2019 11:32 PM 12/15/2019 6:12 PM Care Teams Bee Worker Relationship Specialty Start Date End Date A, Unknown Practice [address] [place], [place] [address] [address] PCP - General 10/08/23
--- OUTSIDE RECORDS SUMMARY | 2024-07-21 17:52 | XMS_ITS | Encounter Summary ---
Author Organization [facility] Address [address] [facility] [place] [address] Care Team Providers Care Trench Digging Machine Operator Name Role Phone Aftab Hall MD Primary Care Provider Unavail able Ingrid Herrera MD Primary Care Provider [phone] Aftab Hall Primary Care Provider Unavailabl e A, Unknown Practice Primary Care Provider [phone] Encounter Details Date Type Department Care Team (Late st Contact Info) Description 10/31/2020 Telephone [facility] Pediatrics - Endocrinology [facility]5 [place] [address] Kassandra Storey, DO [address] [place] [address] Social History Tobacco Use Types Packs/Day Years Used Date Smoking Tobacco: Passive Smo ke Exposure - Never Smoker Smokeless Tobacco: Never Alcohol Use Standard Drinks/Week [...] on file Sexual Orientation Not on file COVID-19 Exposure Response Date Recorded In the last month, have you been in contact with someone who was confirmed or suspected to have Coronavirus / COVID-19? No / Unsure 10/29/2020 11:09 AM CDT documented as of this encounter Functional Status Functional Status Response [...] No 09/16/2020 documented as of this encounter Progress Notes * Kassandra Storey, - 10/31/2020 1:15 PM CDT ENDOCRINE CALL: Mom called through the exchange due to concern about insulin pen. Mom reports that he has adequate pens, but she did not take the humalog pen out of the refridgerator last night, she only took it out this morning. She reports instructions previously to have the insulin at room temperature for 24 hours before use. I let mom know it is okay to use the insulin. I explained that cold insulin injection is uncomfortable and would be preferable to give at room temperature for this reason. documented in this encounter Miscellaneous Notes * Telephone Encounter - Kassandra Storey DO - 01/29/2021 11:08 PM CDT Mom called through the after hours exchange. Followed by endocrine for type 1 diabetes Meds: Lantus 28 units, humalog 1:9+150>150 Reason for Call: Stuffy nose, headache. Can I give him medicine. Please call back [facility] Information provided: Mom would like to give raj-seltzer tabs, box says if consult your doctor if you have diabetes. Assessment/Plan: Okay to use raj-seltzer documented in this encounter Plan of Treatment Upcoming Encounters Date Type Department Care Team (Late st Contact Info) Description 11/24/2024 2:00 PM CDT Appointment [facility] Pediatrics - Endocrinology [facility]3 [facility] [place] [address] Aleksandar Armando MD [address] [place] [address] documented as of this encounter Visit Diagnoses Not on filedocumented in this encounter Care Teams Trench Digging Machine Operator Relationship Specialty Start Date End Date Aftab Hall MD PCP - General 01/02/20 08/28/21 Ingrid Herrera MD [address] [place] [address] PCP - General 08/29/21 04/02/23 Aftab Hall PCP - General 04/03/23 04/03/23 A, Unknown Practice [address] [place] [address] PCP - General 10/08/23 documented as of this encounter
--- OUTSIDE RECORDS SUMMARY | 2024-07-21 17:52 | XMS_ITS | Encounter Summary ---
Author Organization [facility] Address [address] [facility] [place] [address] Care Team Providers Care Perl Programmer Name Role Phone Ingrid Herrera MD Primary Care Provider [phone] Aftab Hall Primary Care Provider [facility] e A, Unknown Practice Primary Care Provider [phone] Reason for Visit * Reason Onset Date Comments MEDICATION REFILL 11/28/2021 Encounter Opened In Error 11/28/2021 Encounter Details Date Type Department Care Team (Late st Contact Info) Description 11/28/2021 Refill [facility] Pediatrics - Diabetes Mgmt [address] [place] [address]. [place] [address] Fannie Fisher MD [address] [place] [address] MEDICATION REFILL; Encounter Opened In Error Social History Tobacco Use Types Packs/Day Years [...] on file documented as of this encounter Functional Status [...] No 09/16/2020 documented as of this encounter Plan of Treatment Upcoming Encounters Date Type Department Care Team (Late st Contact Info) Description 11/24/2024 2:00 PM CDT Appointment [facility] Pediatrics - Endocrinology [facility]3 [facility] [place] [address] Aleksandar Armando MD [address] [place] [address] documented as of this encounter Visit Diagnoses Not on filedocumented in this encounter Care Teams Perl Programmer Relationship Specialty Start Date End Date Ingrid Herrera MD [address] [place] [address] PCP - General 08/29/21 04/02/23 Aftab Hall PCP - General 04/03/23 04/03/23 A, Unknown Practice [address] [place] [address] PCP - General 10/08/23 documented as of this encounter
--- OUTSIDE RECORDS SUMMARY | 2024-07-21 17:52 | XMS_ITS | Encounter Summary ---
Author Organization [facility] Address [address] [place] [address] Care Team Providers Care Advertising Manager Name Role Phone Aftab Hall MD Primary Care Provider Unavail able Ingird Herrera MD Primary Care Provider [phone] Aftab Hall Primary Care Provider Unavailabl e A, Unknown Practice Primary Care Provider [phone] Encounter Details Date Type Department Care Team (Late st Contact Info) Description 03/08/2021 Telephone [facility] Pediatrics - Diabetes [address] [place], [place] [phone] Aleksandar Armando MD [address] [place] [address] Social History Tobacco Use Types Packs/Day Years [...] have Coronavirus / COVID-19? No / Unsure 03/01/2021 8:52 AM CDT documented as of this encounter [...] No 09/16/2020 documented as of this encounter Miscellaneous Notes * Telephone Encounter - Malaika Nash RN - 03/08/2021 8:37 AM CORPORATE SALES TRAINER PA sent for #200/30 days verio test strips via [employer]. ORATE SALES TRAINER documented in this encounter Plan of Treatment Upcoming Encounters Date Type Department Care Team (Late st Contact Info) Description 11/24/2024 2:00 PM CDT Appointment [facility] Pediatrics - Endocrinology [facility]3 [place] [address] Aleksandar Armando MD [address] [place] [address] documented as of this encounter Visit Diagnoses Not on filedocumented in this encounter Care Teams Advertising Manager Relationship Specialty Start Date End Date Aftab Hall MD PCP - General 01/02/20 08/28/21 Ingrid Herrera MD [address] [place] [address] PCP - General 08/29/21 04/02/23 Aftab Hall PCP - General 04/03/23 04/03/23 A, Unknown Practice [address] [place] [address] PCP - General 10/08/23 documented as of this encounter
--- OUTSIDE RECORDS SUMMARY | 2024-07-21 17:52 | XMS_ITS | Encounter Summary ---
Author Organization [facility] Address [address] [facility] [place] [address] Care Team Providers Care Neck Cutter Name Role Phone Aftab Hall MD Primary Care Provider Unavail able Ingrid Herrera MD Primary Care Provider [phone] Aftab Hall Primary Care Provider Unavailabl e A, Unknown Practice Primary Care Provider [phone] Encounter Details Date Type Department Care Team (Late st Contact Info) Description 05/04/2021 Telephone [facility] Pediatrics - Endocrinology [facility]5 [place] [address] Kassandra Storey, DO [address] [place] [address] Social History Tobacco Use Types Packs/Day Years [...] Telephone Encounter - Kassandra Storey DO - 05/04/2021 9:04 PM PIECE DYEING MACHINE TENDER Mom called through the exchange because Rob's blood sugar is low multiple times per night every night, sometimes to the 40's. She would like to adjust his lantus dose. She confirms still giving 25 units every night On further discussion, this issue started approximately 2 weeks ago. Mom thinks the current vial ofinsulin they are using may say lispro on it. I ask mom to confirm what the vial says because lispro and lantus are not the same insulin and he should not take 25 units of lispro before going to bed. Mom reviewed the vial called the pharmacy and called back. She reports that he was give a vial of lispro instead of pens mistakenly per her discussion with the pharmacist. [facility]. E DYEING MACHINE TENDER documented in this encounter Plan of Treatment Upcoming Encounters Date Type Department Care Team (Late st Contact Info) Description 11/24/2024 2:00 PM CDT Appointment [facility] Pediatrics - Endocrinology [facility]3 [facility] [place] [address] Aleksandar Armando MD [address] [place] [address] documented as of this encounter Visit Diagnoses Not on filedocumented in this encounter Care Teams Neck Cutter Relationship Specialty Start Date End Date Aftab Hall MD PCP - General 01/02/20 08/28/21 Ingrid Herrera MD [address] [place] [address] PCP - General 08/29/21 04/02/23 Aftab Hall PCP - General 04/03/23 04/03/23 A, Unknown Practice [address] [place] [address] PCP - General 10/08/23 documented as of this encounter
--- OUTSIDE RECORDS SUMMARY | 2024-07-21 17:52 | XMS_ITS | Encounter Summary ---
Author Organization [facility] Address [address] [facility] [place] [address] Care Team Providers Care Cold Storage Supervisor Name Role Phone A, Unknown Practice Primary Care Provider [phone] Reason for Visit * Reason Comments Refill Request Encounter Details Date Type Department Care Team (Late st Contact Info) Description 06/01/2023 Refill [facility] Pediatrics - Diabetes Mgmt [address] [place] [phone] Aleksandar Armando MD [address] [place] [phone] Refill Request Social History Tobacco Use Types Packs/Day Years [...] Info) Description 11/24/2024 2:00 PM CDT Appointment [facility] Pediatrics - Endocrinology [address] [facility] [place] [address] Aleksandar Armando MD [facility] [place] [address] documented as of this encounter Visit Diagnoses Not on filedocumented in this encounter Care Teams Cold Storage Supervisor Relationship Specialty Start Date End Date A, Unknown Practice [address] [place] [phone] PCP - General 10/08/23 documented as of this encounter
--- OUTSIDE RECORDS SUMMARY | 2024-07-21 17:52 | XMS_ITS | Encounter Summary ---
Author Organization [facility] Address [address] [facility] [place] [address] Care Team Providers Care Sociology Instructor Name Role Phone Aftab Hall MD Primary Care Provider Unavail able Ingrid Herrera MD Primary Care Provider [phone] Aftab Hall Primary Care Provider Unavailabl e A, Unknown Practice Primary Care Provider [phone] Encounter Details Date Type Department Care Team (Late st Contact Info) Description 08/25/2021 Telephone [facility] Pediatrics - Diabetes [facility] [address] [facility] [place] [address] Radha Shin, HEALTH SCIENCE SPECIALIST-SHIM PLUG CUTTER [address] [place] [address] Social History Tobacco Use Types Packs/Day Years [...] Exposure Response Date Recorded In the last 10 days, have christopher cross been in contact with someone who was confirmed or suspected to have Coronavirus/COVID-19? No / Unsure 08/24/2021 2:26 PM CDT documented as of this encounter Functional [...] Telephone Encounter - Malaika Nash RN - 08/25/2021 3:00 PM CDT Received approval for B[employer] G6 sensors and transmitters from [employer] through 08/25/22. Pharmacy notified. documented in this encounter Plan of Treatment Upcoming Encounters Date Type Department Care Team (Late st Contact Info) Description 11/24/2024 2:00 PM CDT Appointment [facility] Pediatrics - Endocrinology [facility]3 [place] [address] Aleksandar Armando MD [address] [place] [address] documented as of this encounter Visit Diagnoses Not on filedocumented in this encounter Care Teams Sociology Instructor Relationship Specialty Start Date End Date Aftab Hall MD PCP - General 01/02/20 08/28/21 Ingrid Herrera MD [address] [place] [address] PCP - General 08/29/21 04/02/23 Aftab Hall PCP - General 04/03/23 04/03/23 A, Unknown Practice [address] [place] [address] PCP - General 10/08/23 documented as of this encounter
--- OUTSIDE RECORDS SUMMARY | 2024-07-21 17:52 | XMS_ITS | Encounter Summary ---
Author Organization [facility] Address [address] [facility] [place] [address] Care Team Providers Care Radio Communication Coordinator Name Role Phone A, Unknown Practice Primary Care Provider Encounter Details Date Type Department Care Team (Latest Contact Info) Description 07/21/2024 Travel Social History Tobacco Use Types Packs/Day Years [...] Info) Description 11/24/2024 2:00 PM CDT Appointment [facility] Pediatrics - Endocrinology [facility]3 [facility] [place] [address] Aleksandar Armando MD [facility]5 [place] [address] documented as of this encounter Visit Diagnoses Not on filedocumented in this encounter Care Teams Radio Communication Coordinator Relationship Specialty Start Date End Date A, Unknown Practice [address] [place] [address] PCP - General 10/08/23 documented as of this encounter
--- OUTSIDE RECORDS SUMMARY | 2024-07-21 17:52 | XMS_ITS | Encounter Summary ---
Author Organization [facility] Address [address] [facility] [address] Care Team Providers Care Collections Curator Name Role Phone Ingrid Herrera MD Primary Care Provider Aftab Hall Primary Care Provider [facility] e A, Unknown Practice Primary Care Provider [phone] Encounter Details Date Type Department Care Team (Late st Contact Info) Description 10/11/2022 Telephone [facility] Pediatrics - Diabetes [address] [phone] Aleksandar Armando MD [address] [place] [address] Social History Tobacco Use Types Packs/Day Years Used Date Smoking Tobacco: Never Passive Smoke Exposure: Yes Smokeless Tobacco: Never Alcohol Use Standard Drinks/Week [...] encounter Miscellaneous Notes * Telephone Encounter - Yong Carballo - 10/11/2022 3:37 PM CDT Mom called as she was unable to be at Rob's last appointment in July. Rob had told her that Dr. Armando had stated there might be changes coming to his treatment. Mom was calling to get clarifying information. Read through notes from last appointment and saw the discussion of Type 1 vs Type 2 vs JAYME. Explained what this RN could in regards to what was discussed in the appointment. Mom will askERNIE Whitaker more questions at their appointment next month. Stated that if Dr. Armando does need to speakwith her in regards to this prior to the appointment that he can call anytime. Will route to Dr. Armando documented in this encounter Plan of Treatment Upcoming Encounters Date Type Department Care Team (Late st Contact Info) Description 11/24/2024 2:00 PM CDT Appointment [facility] Pediatrics - Endocrinology [facility] [place] [address] Aleksandar Armando MD [facility] [place] [address] documented as of this encounter Visit Diagnoses Not on filedocumented in this encounter Care Teams Collections Curator Relationship Specialty Start Date End Date Ingrid Herrera MD [address] [place] [address] PCP - General 08/29/21 04/02/23 Aftab Hall PCP - General 04/03/23 04/03/23 A, Unknown Practice [address] [place] [address] PCP - General 10/08/23 documented as of this encounter
--- OUTSIDE RECORDS SUMMARY | 2024-07-21 17:52 | XMS_ITS | Encounter Summary ---
Author Organization [facility] Address [address] [place] [address] Care Team Providers Care Voltmeter Operator Name Role Phone Aftab Hall MD Primary Care Provider Unavail able Ingrid Herrera MD Primary Care Provider [phone] Aftab Hall Primary Care Provider Unavailabl e A, Unknown Practice Primary Care Provider [phone] Reason for Visit * Reason Onset Date Comments Blood Sugar Problem 10/05/2020 Encounter Details Date Type Department Care Team (Late st Contact Info) Description 10/05/2020 Telephone [facility] Pediatrics - Diabetes Mgmt [address] [place] [address] Ashley Trejo MD Blood Sugar Problem Social History Tobacco Use Types Packs/Day Years [...] have Coronavirus / COVID-19? No / Unsure 10/01/2020 10:22 AM CDT documented as of this encounter [...] encounter Miscellaneous Notes * Telephone Encounter - Chelsie Jonas MD - 10/06/2020 10:39 PM CDT I spoke to Rob's mother when she called through the exchange to say that Rob was complaining ofblurred vision this evening. He did not report any headaches or double vision, just blurred edges when looking at the TV or clock. She did not see any opacities on his eye. Recommended that if it persisted beyond this evening that he may need to get his vision checked by Optometry or Ophthalmology but usually recommend wait until 6 weeks after diagnosis. * Telephone Encounter - Olive Gaines RN - 10/05/2020 9:25 AM CDT Estephania called and reported he did dose unbeknownest to mother that he dosed for breakfast this am. He reports blood sugar is now 179. He reported to have administered 7 units for breakfast of 70 grams carbohydrate. Told her Estephania to check his blood sugar before he gets on bus to return home but should not require insulin until lunch unless has ketones and to call if issues before dosing. She verbalized understanding. * Telephone Encounter - Olive Gaines RN - 10/05/2020 8:54 AM CDT Returned call to school nurse Estephania asking for updated school plan. [phone]. I reviewed with Estephania plan he will most likely need insulin due to eating without insulin this am. Will send school letter to Estephania fax [phone]. * Telephone Encounter - Olive Gaines RN - 10/05/2020 8:33 AM CDT I attempted to return call to family after receiving message stating blood sugar was 74 and he was shaky. This am when he woke up and blood sugar was 74 at 0755 and said his stomach was feeling weird. She made him eat immediately and also gave him juice without dosing him because I was freaking out. Child ate lawson egg and cheese sandwich and pastry without insulin. Reviewed in future to treat low with 15 grams quick acting carbohydrate such as juice and recheck in 15 minutes and repeat until in target and once up in target dose for meal. She sent him to school already today. Did not have blood sugars to report with exception of this am. Mother to call back once obtained blood sugars so dosing can be fully evaluated. Recommendations per injection protocol: Decrease Lantus to 28 units Mother to call back with blood sugars to see if further dose adjustments need to be done. documented in this encounter Plan of Treatment Upcoming Encounters Date Type Department Care Team (Late st Contact Info) Description 11/24/2024 2:00 PM CDT Appointment [facility] Pediatrics - Endocrinology [address] [place] [address] [place] [address] Aleksandar Armando MD [facility] [place] [address] documented as of this encounter Visit Diagnoses Not on filedocumented in this encounter Care Teams Voltmeter Operator Relationship Specialty Start Date End Date Aftab Hall MD PCP - General 01/02/20 08/28/21 Ingrid Herrera MD [address] [place] [address] PCP - General 08/29/21 04/02/23 Aftab Hall PCP - General 04/03/23 04/03/23 A, Unknown Practice [address] [place] [address] PCP - General 10/08/23 documented as of this encounter
--- OUTSIDE RECORDS SUMMARY | 2024-07-21 17:52 | XMS_ITS | Encounter Summary ---
Author Organization [facility] Address [address] [facility] [place] [address] Care Team Providers Care Placement Assistant Name Role Phone A, Unknown Practice Primary Care Provider [phone] Encounter Details Date Type Department Care Team (Late st Contact Info) Description 08/28/2023 Telephone [facility] Pediatrics - Diabetes [address] [address] Aleksandar Armando MD [address] [place] [address] Social History Tobacco Use Types Packs/Day [...] * Telephone Encounter - Yong Carballo - 08/28/2023 10:21 AM CDT PA for Dexcom G7 sensors sent to [place] through [employer] documented in this encounter Plan of Treatment Upcoming Encounters Date Type Department Care Team (Late st Contact Info) Description 11/24/2024 2:00 PM CDT Appointment [facility] Pediatrics - Endocrinology [address] [place] [address] [place] [address] Aleksandar Armando MD [address] [place] [address] documented as of this encounter Visit Diagnoses Not on filedocumented in this encounter Care Teams Placement Assistant Relationship Specialty Start Date End Date A, Unknown Practice [address] [place] [address] PCP - General 10/08/23 documented as of this encounter
--- OUTSIDE RECORDS SUMMARY | 2024-07-21 17:52 | XMS_ITS | Encounter Summary ---
Author Organization [facility] Address [address] [place] [address] Care Team Providers Care Email Specialist Name Role Phone Aftab Hall MD Primary Care Provider Unavail able Ingrid Herrera MD Primary Care Provider [phone] Aftab Hall Primary Care Provider Unavailabl e A, Unknown Practice Primary Care Provider [phone] Reason for Visit * Reason Onset Date Comments MEDICATION REFILL 08/24/2021 Encounter Details Date Type Department Care Team (Late st Contact Info) Description 08/24/2021 Refill [facility] Pediatrics - Diabetes [facility] [address] [facility] [place] [address] Radha Shin, YARN WRAPPER-CLAIM ADJUSTER [address] [place] [address] MEDICATION REFILL Social History Tobacco Use Types Packs/Day Years [...] Recorded In the last 10 days, have yo u been in contact with someone who was [...] Info) Description 11/24/2024 2:00 PM CDT Appointment [facility] Pediatrics - Endocrinology [facility] [place] [address] Aleksandar Armando MD [address] [place] [phone] documented as of this encounter Visit Diagnoses Diagnosis Diabetes mellitus type 1, uncomplicated (HCC)- Primary Type I (juvenile type) diabetes mellitus without mention of complication, not stated as uncontrolled documented in this encounter Care Teams Email Specialist Relationship Specialty Start Date End Date Aftab Hall MD PCP - General 01/02/20 08/28/21 Ingrid Herrera MD [address] [place] [address] PCP - General 08/29/21 04/02/23 Aftab Hall PCP - General 04/03/23 04/03/23 A, Unknown Practice [address] [place], [place] [address] PCP - General 10/08/23 documented as of this encounter
--- OUTSIDE RECORDS SUMMARY | 2024-07-21 17:52 | XMS_ITS | Encounter Summary ---
Author Organization [facility] Address [address] [facility] [place] [address] Care Team Providers Care Hand Therapist Name Role Phone Ingrid Herrera MD Primary Care Provider [phone] Aftab Hall Primary Care Provider [facility], Unknown Practice Primary Care Provider [phone] Encounter Details Date Type Department Care Team (Late st Contact Info) Description 01/11/2022 Telephone [facility] Pediatrics - Diabetes Mgmt [address] [place] [address] Aleksandar Armando MD [address] [place] [address] Social History Tobacco Use Types Packs/Day Years [...] * Telephone Encounter - Yong Carballo - 01/11/2022 1:56 PM CDT Attempted to call mom to clarify what exactly the needed refilled. Left message on machine documented in this encounter Plan of Treatment Upcoming Encounters Date Type Department Care Team (Late st Contact Info) Description 11/24/2024 2:00 PM CDT Appointment [facility] Pediatrics - Endocrinology [address] [facility] [place] [address] Aleksandar Armando MD [facility] [place] [address] documented as of this encounter Visit Diagnoses Not on filedocumented in this encounter Care Teams Hand Therapist Relationship Specialty Start Date End Date Ingrid Herrera MD [address] [place] [address] PCP - General 08/29/21 04/02/23 Aftab Hall PCP - General 04/03/23 04/03/23 A, Unknown Practice [address] [place] [address] PCP - General 10/08/23 documented as of this encounter
--- OUTSIDE RECORDS SUMMARY | 2024-07-21 17:52 | XMS_ITS | Clinical Summary ---
Author Organization [facility] Address [facility] [place] [address] Care Team Providers Care Skid Adzer Name Role Phone Aftab Hall MD Primary Care Provider [phone] Allergies Active Allergy Reactions Criticality Noted Date Comments Shellfish-Derived Products Other (see comment) 05/06/2018 tingling Medications Continuous Glucose Sensor (DEXCOM G7 SENSOR) Misc USE 1 EVERY 10 DAYS 12/13/19 24 Active Continuous Glucose Transmitter (DEXCOM G6 TRANSMITTER) Misc USE DIRECTED EVERY 90 DAYS 02/06/20 23 Active Glucagon (BAQSIMI ONE PACK) 3 MG/DOSE Powder 3 mg by Nasal route. 10/11/19 24 Active ONETOUCH VERIO test strip TEST BLOOD SUGAR 1 TO 4 TIMES DAILY Active LANTUS SOLOSTAR 100 UNIT/ML injection (PEN) INJECT 21 UNITS SUBCUTANEOUSLY AT BEDTIME Active insulin lispro, 1 Unit Dial, (HUMALOG) 100 UNIT/ML injection (PEN) INJECT 1 UNIT UNDER THE SKIN FOR EVERY 12-5 GRAMS OF CARBOHYDRATES WITH MEALS AND SNACKS OR DIRECTED. MAXIMUM DAILY DOSE IS 50 UNITS. 10/11/19 24 Active TRUEPLUS 5-BEVEL PEN NEEDLES 32G X 4 MM Misc USE 1 DIRECTED TO ADMINISTER INSULIN 4 TO 6 TIMES DAILY 11/27/19 24 Active nirmatrelvir & ritonavir 300/100 (PAXLOVID) 20 x 150 MG & 10 x 100MG tablet pack Take 3 tablets by mouth 2 (two) times daily. Take TWO nirmatrelvir 150 mg tablet(s) along with ONE ritonavir 100 mg tablet, with all three tablets taken together, twice daily for 5 days. May take with or without food. Swallow tablets whole. Do not chew, break or crush.. 30 tablet 12/18/19 24 Active Family History Medical History Relation Comments No Known Problems Father No Known Problems Mother Relation Status Comments Father Alive Mother Alive Social History Tobacco Use Types Packs/Day Years Used Date Smoking Tobacco: Never Smokeless Tobacco: Never Alcohol Use Standard Drinks/Week Comments No 0 (1 standard drink = 0.6 oz pur e alcohol) AUDIT-C Answer Date Recorded Frequency of Alcohol Consumption Never 05/06/2018 Average Number of Drinks Not on file 019 Frequency of Binge Drinking Not on file 10/2018 Sex and Gender Information Value Date Recorded Sex Assigned at Not on file Legal Sex Male 7:51 PM CDT Gender Identity Not on file Sexual Orientation Not on file Last Filed Vital Signs Vital Sign Reading Time Taken Comments Blood Pressure 131/79 12/18/2023 1:15 PM CDT Pulse 87 12/18/2023 1:15 PM CDT Temperature 37.8 C (100 F) 12/18/2023 1:15 PM CDT Respiratory Rate 16 12/18/2023 1:15 PM CDT Oxygen Saturation 99% 12/18/2023 1:15 PM CDT Inhaled Oxygen Concentration - - Weight 88.5 kg (195 lb) 12/18/2023 1:15 PM CDT Height 180.3 cm (5' 11 ) 12/18/2023 1:15 PM CDT Body Mass Index 27.2 12/18/2023 1:15 PM CDT Body Mass Index Percentile 88.85% 12/18/2023 1:1 5 PM CDT Growth Chart: CDC (Boys, 2-2 0 Years) Plan of Treatment Health Maintenance Due Date Last Done Comments Annual Physical 12/29/2007 DTaP, Tdap and Td Vaccines (5 - Tdap) 12/29/2015 04/05/2006, 10/17/2005, 08/08/2005, Additional history exists Meningococcal B Vaccine (1 of 2 - Standard) 2020 Hepatitis C 2022 COVID-19 Vaccine ( - season) 2023 Influenza Adult (#1) 2024 Hepatitis B Vaccines Completed 10/17/2005, 08/08/2005, 04/25/2005 Meningococcal Vaccine Aged Out 11/24/2015 No cari kenny eligible based on patient's age to complete this topic HPV Vaccines Completed 01/14/2019, 12/06/2017 Pneumococcal Vaccine: Pediatrics (0 to 5 Years) and At-Risk Patients (6 to 64 Years) Aged Out No longer eligible based on patient's age to complete this topic RSV Immunizations Under 20 Months Aged Out No longer eligible based on patient's age to complete this topic Insurance [employer] Care Teams Skid Adzer Relationship Specialty Start Date End Date Aftab Hall MD [address] [place] [address] PCP - General PEDIATRICS 05/06/18
--- OUTSIDE RECORDS SUMMARY | 2024-07-21 17:52 | XMS_ITS | Encounter Summary ---
Author Organization [facility] Address [address] [facility] [place] [address] Care Team Providers Care Laboratory Apparatus Glass Grinder Name Role Phone Ingrid Herrera MD Primary Care Provider Aftab Hall Primary Care Provider [facility] e A, Unknown Practice Primary Care Provider [phone] Encounter Details Date Type Department Care Team (Late st Contact Info) Description 08/14/2022 Telephone [facility] Pediatrics - Diabetes [address] [address] Aleksandar Armando MD [address] [place] [address] Social History Tobacco Use Types Packs/Day Years [...] * Telephone Encounter - Yong Carballo - 08/14/2022 8:39 AM CDT PA for Dexcom G6 Transmitter and Artificial Glass Eye Maker sent to [facility] via Cover[employer]ymeds * Telephone Encounter - Yong Carballo - 08/14/2022 8:29 AM CDT PA for Dexcom G6 Sensors sent to [facility] via [employer] documented in this encounter Plan of Treatment Upcoming Encounters Date Type Department Care Team (Late st Contact Info) Description 11/24/2024 2:00 PM CDT Appointment [facility] Pediatrics - Endocrinology [facility] [facility] [address] Aleksandar Armando MD [facility] [place] [address] documented as of this encounter Visit Diagnoses Not on filedocumented in this encounter Care Teams Laboratory Apparatus Glass Grinder Relationship Specialty Start Date End Date Ingrid Herrera MD [address] [place] [address] PCP - General 08/29/21 04/02/23 Aftab Hall PCP - General 04/03/23 04/03/23 A, Unknown Practice [address] [place] [id number] PCP - General 10/08/23 documented as of this encounter
--- OUTSIDE RECORDS SUMMARY | 2024-07-21 17:52 | XMS_ITS | Encounter Summary ---
Author Organization [facility] Address [address] [facility] [place] [address] Care Team Providers Care Take Away Attendant Name Role Phone Aftab Hall MD Primary Care Provider Unavail able Ingrid Herrera MD Primary Care Provider [phone] Aftab Hall Primary Care Provider Unavailabl e A, Unknown Practice Primary Care Provider [phone] Encounter Details Date Type Department Care Team (Late st Contact Info) Description 02/16/2021 Telephone [facility] Pediatrics - Diabetes [address] [place] [address] Aleksandar Armando MD [address] [place] [address] Social History Tobacco Use Types Packs/Day [...] Telephone Encounter - Malaika Nash RN - 02/16/2021 9:14 AM CDT Mom called to report frequent lows. She does not have bg records in front of her at this time. I asked for mom to call back to review bgs. Current doses: 1:10 (was told by coordinator of rehabilitation services physician to decrease from 1:9 two nights ago) >150 27 units lantus dainestory documented in this encounter Plan of Treatment Upcoming Encounters Date Type Department Care Team (Late st Contact Info) Description 11/24/2024 2:00 PM CDT Appointment [facility] Pediatrics - Endocrinology [address] [place] [address] [place] [address] Aleksandar Armando MD [address] [place] [address] documented as of this encounter Visit Diagnoses Not on filedocumented in this encounter Care Teams Take Away Attendant Relationship Specialty Start Date End Date Aftab Hall MD PCP - General 01/02/20 08/28/21 Ingrid Herrera MD [address] [place] [address] PCP - General 08/29/21 04/02/23 Aftab Hall PCP - General 04/03/23 04/03/23 A, Unknown Practice [address] [place] [address] PCP - General 10/08/23 documented as of this encounter
--- OUTSIDE RECORDS SUMMARY | 2024-07-21 17:52 | XMS_ITS | Encounter Summary ---
Author Organization [facility] Address [address] [facility] [place] [address] Care Team Providers Care Dietician Name Role Phone Aftab Hall MD Primary Care Provider Unavail able Ingrid Herrera MD Primary Care Provider [phone] Aftab Hall Primary Care Provider Unavailabl e A, Unknown Practice Primary Care Provider [phone] Encounter Details Date Type Department Care Team (Late st Contact Info) Description 09/20/[address] [facility] Pediatrics - Diabetes [address] [place], [place] [id number] Aleksandar Armando MD [address] [place] [address] Social History Tobacco Use Types Packs/Day [...] encounter Miscellaneous Notes * Telephone Encounter - Olive Gaines RN - 09/30/2020 11:17 AM CDT Mother called to report Rob awakened around 0830 when she left for work. She spoke with him laterand he described his one leg shaking this am when blood sugar was 80 but denies seizure. He then ate breakfast and blood sugar then was 126. Blood sugar history per doc flowsheets. Recommendations per injection protocol:: Decrease Lantus to 32 units To call later today to report blood sugars so can better evaluate dosing. To not allow to sleep in without checking or miss bedtime check to prevent lows. * Telephone Encounter - Dianna Mccall RN - 09/28/2020 3:01 PM CDT Called mother to update that per Dr. Tineo, Rob may discontinue taking the potassium pills. Noanswer. Left vm to call office with questions. * Telephone Encounter - Dianna Mccall RN - 09/28/2020 10:29 AM CDT Mother called to report Rob woke up at 75 this morning. She was concerned it was too low. Discussed that the bg level was perfect. Asked her to review bgs. To assess trends. She did not have bgs available for review. She will call later to report. * Telephone Encounter - Kassandra Storey DO - 09/24/2020 8:07 PM CDT ENDOCRINE AFTER HOURS CALL: Mom called through the exchange to verify dosing. They are eating [address] [place] [address] buffalo chickensalad and potatoes. The salad is listed on the website as 90 grams of carb. He is not eating the trina or the blue cheese crumbles. Based on size, I estimated to remove 1 unit for the sides he is not eating. And verified the dose of 17.8 units + 1 unit for blood sugar 170 is dose of 19 units total. He thinks he will finish all of it, but recommended that if he does not finish all of it, to drink something to make up the carbs. * Telephone Encounter - Dianna Mccall RN - 09/24/2020 3:20 PM CDT Mother called to review bgs. See doc flowsheet. Plan per injection protocol: Change carb ratio to 1:9 Doses after adjustment: Lantus: 35 units nightly Breakfast: 1 unit per 9 grams of carbs Lunch: 1 unit per 9 grams of carbs Dinner: 1 unit per 9 grams of carbs Mother was under the impression target range was 150-300. We discussed and she reviewed binder material and found where it was documented that target range is 80-150. She is aware and will have new goals. Praised her efforts and encouraged her that bgs are very close to target indicating he mostly likely just needs additional insulin. Mother to continue with calls. * Telephone Encounter - Radha Naqvi RN - 09/24/2020 8:19 AM CDT I returned call to mother and left a VM to call the office back to report blood sugars. I left office and exchange contact numbers on message. * Telephone Encounter - Malaika Nash RN - 09/21/2020 4:32 PM CDT Mom called to review bgs. She states she does not have the logbook with her but remembers breakfastand lunch numbers from today. I asked that she call tomorrow with today's bgs. She also asked if she could speak with RD about counting carbs. Will route to RD to follow up with mom ([phone]). * Telephone Encounter - Dianna Mccall RN - 09/21/2020 8:33 AM CDT Mother called 186 at [employer]. Did not take insulin. She questioned if she should give correction dose or let him wait until lunch. It has been 30 minutes since eating. I advised her to go ahead and give correction dosing. Otherwise, his bg will be elevated until lunch. She verbalized understanding. * Telephone Encounter - Radha Naqvi RN - 09/20/2020 4:04 PM CDT I called mother to review blood sugars, see flow sheet. Mother did not have log book to review blood sugars from yesterday. Mother also said that Rob slept in today until noon, then took his blood sugar. I reminded mother that she is to call daily to the diabetes office to report blood sugars. I reviewed with her that Rob still must check his blood sugar even if he is sleeping in. I asked that blood sugars is checked by 0900. I reviewed all essential blood sugar checks and if signs of hyper/hypoglycemia. Current insulin doses: Lantus: 35 units Humalog 1:10 CHO Correction 1 unit for every 50 over 150. Mother also said that insurance is now changed to [facility]. Father or grandmother likely to bring Rob to first follow up appointment. Mother has a training that she states she must be present for her employer. documented in this encounter Plan of Treatment Upcoming Encounters Date Type Department Care Team (Late st Contact Info) Description 11/24/2024 2:00 PM CDT Appointment [facility] Pediatrics - Endocrinology [address] [facility] [place] [address] Aleksandar Armando MD [facility] [place] [address] documented as of this encounter Visit Diagnoses Not on filedocumented in this encounter Care Teams Dietician Relationship Specialty Start Date End Date Aftab Hall MD PCP - General 01/02/20 08/28/21 Ingrid Herrera MD [address] [place] [address] PCP - General 08/29/21 04/02/23 Aftab Hall PCP - General 04/03/23 04/03/23 A, Unknown Practice [address] [place] [address] PCP - General 10/08/23 documented as of this encounter
[2024-07-21 20:53] LABS: Cholesterol 205 mg/dL (0-200); HDL Direct 86 mg/dL; Triglycerides 104 mg/dL (<150)
[2024-07-21 21:05] LABS: LDL Cholesterol Direct 75 mg/dL
[2024-07-21 21:13] LABS: Creatinine Urine 174.8 mg/dL
[2024-07-21 21:43] LABS: MALB Creatinine Ratio < 3.4 mg/g (0-30); Microalbumin Urine Random < 6.0 mg/L (0-16.7)
[2024-07-24 03:14] LABS: Tissue Transglutaminase IgA Ab <1.0 U/mL
== END 2024-07-21 15:23 | disposition home or self-care (01) ==
LOC: ANHASCLAB 15:27
PROVIDERS: Visit Provider Pediatrics Pediatric Endocrinology
DX: E10.9 Type 1 diabetes mellitus without complications (principal)
CPT/HCPCS: 36415; 80061; 82043; 83516; 84443